=== PATIENT | male | born 1975 | race Caucasian/White ===

== ENCOUNTER 2017-05-07 18:05 | Emergency (ER) | payer SELFPAY | END 2017-05-07 22:20 | disposition home or self-care (01) | LOC: D.ER 18:05 | DX: S61.242A Puncture wound with foreign body of right middle finger without damage to nail, initial encounter (principal); X58.XXXA Exposure to other specified factors, initial encounter; Y93.89 Activity, other specified; Y92.029 Unspecified place in mobile home as the place of occurrence of the external cause ==